=== PATIENT | male | born 1945 | race Asian ===

== ENCOUNTER 2019-10-18 15:07 | Emergency (ER) | payer OTHER ==
--- OUTSIDE RECORDS SUMMARY | 2019-10-18 15:13 | XMS REPORT | Continuity of Care Document ---
:1945 External Reference #:[id number] Author Name Darío Salcedo Address [address] [place] [address] Care Team Providers Name Role Phone Doc Reese MD - Cardiovascular Care Team Information Strategic Buyer [phone] [facility] - Care Team Information Strategic Buyer [phone] Gastroenterology Dorian Ohara MD - Family Care Team Information Strategic Buyer [phone] [place] [facility] [place] Care Team Information Strategic Buyer [phone] - Health Educator [facility] - Care Team Information Strategic Buyer Optical Mechanic [facility] [place] - Diagnostic Care Team Information Strategic Buyer Radiology [facility] [place] [facility] Care Team Information Strategic Buyer Kirit Hughes MD - Surgery Care Team Information Strategic Buyer [phone] - Urology Care Team Information Strategic Buyer [phone] Problems Active Problems Provider Date Allergic asthma without status asthmaticus Dorian Ohara M.D. Onset: Type 2 diabetes mellitus Isac Harrington M.D. Onset: 03/29/2008 Hyperlipidemia Isac Harrington M.D. Onset: 03/29/2008 Benign essential hypertension Isac Harrington M.D. Onset: 03/29/2008 Chest pain Dorian Ohara M.D. Onset: 01/26/2012 Plantar fascial fibromatosis Meadows A. Hernandez, M.D. Onset: 06/11/2012 Cough Dorian Ohara M.D. Onset: 08/16/2012 Malaise and fatigue Dorian Ohara M.D. Onset: 10/18/2012 Intestinal obstruction Dorian Ohara M.D. Onset: 12/18/2014 Acute maxillary sinusitis Dorian Ohara M.D. Onset: 01/01/2015 Essential hypertension Dorian Ohara M.D. Onset: 12/08/2016 Social History Type Date Description Comments Sex Unknown ETOH Use Occasional 1 glass of wine / week Tobacco Use Start: Unknown Nonsmoker Smoking Status Reviewed: 09/28/19 Nonsmoker Allergies, Adverse Reactions, Alerts Description No Known Drug Allergies Medications Active Medications SIG Qnty Indications Ordering Date Provider Benzonatate 1-2 tabs by mouth 30caps Katherine 100mg Capsules three times a day [place], 0 as needed cough Afnp-C Breo Ellipta 1 puff every day 28units Dorian Chapin 200-25mcg/Inh Ignacio Ohara 8 Aerosol Januvia Take 1 Tablet By 90tabs Dorian Chapin 100mg Tablets Mouth Every Day Ignacio Ohara 7 Onetouch Ultra Blue use to test blood 360units Cadence JinHarrison Strips sugars fasting Ignacio Almendarez 6 and 2 hours after meals Onetouch Delica Lancets use to test blood 360units Dorian Chapin Extra Fine 33G sugars fasting Ignacio Ohara 6 Misc daily and 2 hours after meals Onetouch Ultra System use to test blood 1units Dorian Chapin W/Device sugars fasting Ignacio Ohara 5 Kit daily and 2 hours after meals DX: 250.00 last appt : 01/01/15 [facility] Ultra Smart Test use to test blood 100units Dorian Chapin Strips sugars bid. every Ignacio Ohara 5 Strips morning before breakfast and before dinner dx e11.9 Metoprolol Tartrate Take 1 Tablet By 180tabs Dorian Chapin 50mg Mouth Two Times Ignacio Ohara 0 Tablets Daily Allopurinol Take 1 Tablet By 90tabs Dorian Chapin 300mg Tablets Mouth Daily Ignacio Ohara 8 Enalapril Maleate Take 1 Tablet By 90tabs Dorian Chapin 5mg Tablets Mouth Daily Ignacio Ohara 8 Simvastatin Take 1 Tablet By 90tabs Dorian Chapin 40mg Tablets Mouth Every Ignacio Ohara 8 Night AT Bedtime Metformin HCL Take 1 Tablet By 180tabs Dorian Chapin 850mg Tablets Mouth Twice A Ignacio Ohara 8 Day Hydrochlorothiazide Take 1 Tablet By 90tabs Dorian Chapin 25mg Mouth Daily Ignacio Ohara 8 Tablets Viagra Take 1 Tablet as 6tabs Dorian Chapin 100mg Tablets Alberto Ohara M.D. 8 Ecotrin 1 po qd 90tabs Dorian Chapin 325mg Tablets DR Mayda M.D. 8 Tamsulosin HCL 1 by mouth every Unknown 0.4mg Capsules day 0 Finasteride 1 by mouth every Unknown 5mg Tablets day 0 Spiriva Respimat 2 inhalations Unknown 1.25mcg/Act every day 0 Aerosol Fluticasone Propionate 1 spray per Unknown Nasal Gordon 24- Hour nostril daily 0 50mcg/Act Suspension Immunizations CPT Code Status Date Vaccine Lot # [id number] Given 07/02/2019 High-Dose, Influenza Virus Vacccine-fluzone 65 [id number] and older 11416 Given 06/14/2018 High-Dose, Influenza Virus Vacccine-fluzone 65 [id number] and older 44272 Given 06/10/2017 High-Dose, Influenza Virus Vacccine-fluzone 65 [id number] and older 34932 Given 07/28/2016 High-Dose, Influenza Virus Vacccine-fluzone 65 [id number] and older 13339 Given 09/12/2015 Zostivax [id number] 52703 Given 08/27/2015 Pneumococcal Conjugate Vacc-13 [id number] 84310 Given 06/18/2015 Influenza Vac, Quadrivalent, Slit Virus, Im [id number] 73624 Given 07/10/2014 High-Dose, Influenza Virus Vacccine-fluzone 65 [id number] and older 34891 Given 09/28/2013 Pneumococcal Conjugate Vacc-13 [id number] Given 06/25/2013 Split Influenza Medicare: Fluzone [id number] 13612 Given 06/25/2013 DO Not Use Split Influenza Virus Vaccine 44514 Given 08/09/2012 High-Dose, Influenza Virus Vacccine-fluzone 65 [id number] and older 16691 Given 07/22/2010 DO Not Use Split Influenza Virus Vaccine [id number] Vital Signs Date Vital Result Comment 09/28/2019 1:30pm BP Systolic 100 mmHg BP Diastolic 58 mmHg Heart Rate 66 /min Body Temperature 97.5 F Respiratory Rate 16 /min O2 % BldC Oximetry 96 % Ra Weight 187.00 lb 08/08/2019 9:11am BP Systolic 116 mmHg BP Diastolic 80 mmHg Heart Rate 68 /min Body Temperature 96.8 F Respiratory Rate 16 /min Weight 188.00 lb Results Test Acquired Date Facility Test Result H/L Range Note Comprehensive 08/08/2019 [facility]) Sodium 135 mEq/L 134-149 Metabolic Prof Potassium 3.6 mEq/L 3.6-5.5 Chloride 99 mEq/L 94-112 Carbon Dioxide 26 mEq/L 21-32 Glucose 305 mg/dL High 70-105 1 BUN 16 mg/dL 6-26 Creatinine 0.8 mg/dL 0.6-1.4 BUN/Creat Ratio 20.0 CALC 8.0-36.0 Calcium 9.5 mg/dL 8.6-10.2 Total Protein 7.4 g/dL 6.4-8.3 Albumin 4.8 g/dL 3.8-5.5 Globulin 2.6 g/dL 2.0-4.8 A/G Ratio 1.8 CALC 0.6-2.3 Alk. Phosphatase 53 U/L 22-95 Alt (SGPT) 54 U/L High 7-35 Ast (Sgot) 37 U/L High 5-34 Total Bilirubin 0.8 mg/dL 0.2-1.3 GFR Non- >60 ml/min/1.73m^ >=60 GFR >60 ml/min/1.73m^ >=60 Lipid Profile 08/08/2019 [facility](a) Cholesterol 123 mg/dL 120- 200 Triglycerides 159 mg/dL 30-200 HDL Cholesterol 49 mg/dL 30-70 LDL (Calculated) 42 CALC 0-129 VLDL Cholesterol 32 mg/dL 0-50 HDL Risk Factor 2.5 CALC 0.0-4.4 Laboratory test finding 08/08/2019 [facility]) PSA 2.5 ng/mL 0.0 -4.0 CBC Electronic Fma 08/08/2019 [facility](a) WBC 6.6 x10^3/UL 4.0- 10.0 RBC 5.35 x10^6/UL 3.93-6.00 HGB 16.2 g/dL 12.0-17.0 HCT 48 % 35-50 MCV 88.8 fL 80.0-95.0 MCH 30.3 pg 25.6-32.2 MCHC 34.1 g/dL 32.2-36.0 RDW-CV 13.7 % 11.6-14.4 PLT 198 x10^3/UL 163-400 MPV 10.8 fL 9.4-12.4 [place]# 4.55 x10^3/UL 1.56-6.13 Lymph# 1.40 x10^3/UL 1.18-3.74 [place]# 0.52 x10^3/UL 0.24-0.82 Eos # 0.1 x10^3/UL 0.0-0.5 Baso # 0.04 x10^3/UL 0.01-0.08 [place]% 68.7 % 34.0-70.0 Lymph % 21.2 % 20.0-52.0 [place]% 7.9 % 5.0-12.0 Eos% 1.1 % 0.7-7.0 Baso% 0.6 % 0.1-1.2 Laboratory test finding 08/08/2019 [facility](a) TSH 3.46 mIU/L 0.50-6.00 Free T4 1.09 ng/dL 0.75-1.54 Laboratory test 08/08/2019 [facility] Hemoglobin A1c 8.5 % % High 4.1-5.7 finding (607)- - (Fma) 1 RESULTS VERIFIED BY REPEAT ANALYSIS Procedures Date Code Description Status 10/27/2017 51038297 Colonoscopy Completed 09/20/2015 [id number] Colonoscopy Completed 10/13/2014 [id number] Colonoscopy Completed Medical Devices Description No Information Available Encounters Type Date Location Provider Dx Diagnosis Office Visit 08/08/2019 Main Office Dorian Ohara, E11.9 Type 2 diabetes 9:00a M.D. mellitus without complications R53.83 Other fatigue J45.909 Unspecified asthma, uncomplicated I10 Essential (primary) hypertension N40.1 Benign prostatic hyperplasia with lower urinary tract symp Assessments Date Code Description Provider 09/28/2019 J06.9 Acute upper respiratory infection, Lanenp-C unspecified 09/28/2019 R05 Cough Ryan Salcedo-C 09/28/2019 E11.9 Type 2 diabetes mellitus without Lanenp-C complications 08/08/2019 E11.9 Type 2 diabetes mellitus without Dorian Ohara M.D. complications 08/08/2019 R53.83 Other fatigue Dorian Ohara M.D. 08/08/2019 J45.909 Unspecified asthma, uncomplicated Dorian Ohara M.D. 08/08/2019 I10 Essential (primary) hypertension Dorian Ohara M.D. 08/08/2019 N40.1 Benign prostatic hyperplasia with lower Dorian Ohara M.D. urinary tract symptoms 07/02/2019 Z23 Encounter for immunization Dorian Ohara M.D. Plan of Treatment Future Appointment(s):12/07/2019 9:00 am - Dorian Ohara M.D. at Main [facility]8909/28/2019 - Ryan Salcedo-CJ06.9 Acute upper respiratory infection, [id number] CoughFollow up:Followup:. (Follow up)E11.9 Type 2 diabetes mellitus without complicationsAllNew Medication:Benzonatate 100 mg - 1- 2 tabs by mouth three times a day as needed coughComments:Medication Management Patient Understands medications he's taking? Yes No Are there Barriersto Adherence? Yes No Has the patient been asked about herbal supplements and therapies, and OTC meds? Yes No Care Plan1. Patient has been queried about patient's goals/preferences and functional/ lifestyle goals at relevant visits. If relevant, describe: na2. Treatment goals asexplained to the patient: above resolution of sximprovement in dm control 3. Are there barriers to meeting treatment goals? Yes No If Yes, please describe:4. Self-Management goals as described to the patient: Yes No i do not see any evidenc of a secondary bacterial infection your coughought to improve with time and supportive rx try tessalon call if no better through week or if sx worsen refer to power shovel engineer for dm management Functional Status Description No Information Available Mental Status Description No Information Available Referrals Description No Information Available
[2019-10-18 15:27] VITALS: BP 133/79
--- NOTE | 2019-10-18 15:28 | UC ---
Cardiac HPI - HPI Summary HPI Summary: 74 yo male presents, accompanied by his , with chest pain. He tells me that over the last 3-4 days he has been having intermittent episodes of central chest pain. Pain will occur randomly and is not associated with any specific activity. Chest pain lasts <10minutes and resolved spontaneously. No associated SOB, n/v, headache, or dizziness. He tells me that he has a history of asthma and has a cough at baseline - this is not worse lately. tells me that pt has a history of a "left heart clot" about 10 years ago and was seen by Dr. Reese, but is no longer on medication for this. Denies PRADHAN, abdominal pain, n/v , back pain, SOB. - History of Current Complaint Chief Complaint: UCChestPain Stated Complaint: CHEST PAIN Time Seen by Provider: 10/18/19 15:08 Hx Obtained From: Patient Onset/Duration: Sudden Onset Initial Severity: Mild Current Severity: Mild Pain Intensity: 3 - Allergy/Home Medications Allergies/Adverse Reactions: Allergies Allergy/AdvReac Type Severity Reaction Status Date / Time ENVIRONMENTAL/SEASONAL Allergy SNEEZE Uncoded 10/18/19 15:25 PMH/Surg Hx/FS Hx/Imm Hx Endocrine History: Diabetes, Dyslipidemia Cardiovascular History: Cardiac Disease, Hypertension - Surgical History Surgical History: Yes Surgery Procedure, Year, and Place: 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 09/2013-COLON RESECTION APPENDECTOMY [facility] [place]. 03/2014 GALLBLADDER. 11/2013 POWERPORT PLACEMENT. T& A S - Family History Known Family History: Positive: Cardiac Disease, Hypertension, Diabetes - Social History Lives: With Family Alcohol Use: Occasionally Alcohol Amount: 1 glass of wine 2-3 x per week Substance Use Type: None Smoking Status (MU): Never Smoked Tobacco Type: Cigarettes Amount Used/How Often: 1 PPD Length of Time of Smoking/Using Tobacco: 30 YEARS Have You Smoked in the Last Year: No When Did the Patient Quit Smoking/Using Tobacco: 1998 - Immunization History Most Recent Influenza Vaccination: 2014 Most Recent Tetanus Shot: none Most Recent Pneumonia Vaccination: 08/2013 Review of Systems All Other Systems Reviewed And Are Negative: No Constitutional: Positive: Negative Skin: Positive: Negative Eyes: Positive: Negative ENT: Positive: Negative Respiratory: Positive: Negative Cardiovascular: Positive: Chest Pain Gastrointestinal: Positive: Negative Neurovascular: Positive: Negative Neurological: Positive: Negative Psychological: Positive: Negative Physical Exam - Summary Physical Exam Summary: GENERAL: NAD. WDWN. No pain distress. SKIN: No rashes, sores, or open wounds. HEENT: Head: AT/NC Eyes: PERRLA. EOM intact. Conjunctiva clear without inflammation or discharge. Ears: Hearing grossly normal. TMs intact, no bulging, erythema, or edema. Nose: Nasal mucosa pink and moist. NTTP maxillary and frontal sinus. Throat: Posterior oropharynx without exudates, erythema, or tonsillar enlargement. Uvula midline. NECK: Supple. Nontender. No lymphadenopathy. CHEST: CTAB. No r/r/w. No accessory muscle use. Breathing comfortably and in no distress. CV: RRR. Pulses intact. Brisk cap refill. ABDOMEN: Soft. NTTP. No distention or guarding. No CVA tenderness. Bowel sounds present MSK: FROM and 5/5 strength throughout. No edema. NEURO: Alert. PSYCH: Age appropriate behavior. Triage Information Reviewed: Yes Vital Signs: Initial Vital Signs Temp 96.8 F 10/18/19 15:25 Pulse 57 10/18/19 15:25 Resp 18 10/18/19 15:25 BP 133/79 10/18/19 15:25 Pulse Ox 98 10/18/19 15:25 Laboratory Tests 10/18/19 15:20 POC Glucose (mg/dL) 148 H Vital Signs Reviewed: Yes Diagnostics - EKG EKG Comparison: Other - 56bpm sinus bradycardia. Borderline prolonged MN. 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 Read by Dr. 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 POC glucose 148. He is currently NOT having any chest pain. Given pt's cardiac hx and recent chest pain - recommend go to the ED for further evaluation. Pt and were agreeable to this and will drive him. - Clinical Impression Provider Diagnosis: Chest pain Discharge ED - Sign-Out/Discharge Documenting (check all that apply): Patient Departure All imaging exams completed and their final reports reviewed: No Studies - Discharge Plan Condition: Stable Disposition: HOME-RECOMMEND TO ED Referrals: Dorian Ohara MD [Primary Care Provider] - Additional Instructions: Please go to the ER for further evaluation of your chest pain - Billing Disposition and Condition Condition: STABLE Disposition: Home-Recommend to ED
== END 2019-10-18 15:40 | disposition home health service (06) ==
LOC: UCEAST 15:07
DX: R07.9 Chest pain, unspecified (principal); E11.9 Type 2 diabetes mellitus without complications; I10 Essential (primary) hypertension; Z91.09 Other allergy status, other than to drugs and biological substances
CPT/HCPCS: 93005; 99212; G0463

== ENCOUNTER 2019-10-18 16:09 | Emergency (ER) | payer OTHER ==
[2019-10-18 16:41] LABS: INR 1.05 (0.82-1.09)
[2019-10-18 16:47] LABS: ABS Basophils 0.1 10^3/ul (0-0.2); ABS Eosinophils 0.1 10^3/ul (0-0.6); ABS Lymphocytes 1.4 10^3/ul (1.0-4.8); ABS Monocytes 0.6 10^3/ul (0-0.8); ABS Neutrophils 4.6 10^3/ul (1.5-7.7); Eosinophil % 2.1 %; Hematocrit 45 % (42-52); Hemoglobin 16.5 g/dL (14.0-18.0); Lymphocyte % 20.4 %; Mean Corpuscular HGB Conc 36 g/dL (31-36); Mean Corpuscular Hemoglobin 33 pg (27-31); Mean Corpuscular Volume 89 fL (80-94); Mean Platelet Volume 8.5 fL (7.4-10.4); Nucleated Red Blood Cells % 0.1; Platelet Count 195 10^3/uL (150-450); Red Blood Count 5.08 10^6 /uL (4.18-5.48); Red Cell Distribution Width 14 % (10-15); White Blood Count 6.9 10^3/uL (3.5-10.8)
[2019-10-18 16:52] LABS: Albumin 4.3 g/dL (3.2-5.2); Albumin/Globulin Ratio 1.5 (1-3); BUN/Creatinine Ratio 11.7 (8-20); Calcium 9.3 mg/dL (8.6-10.3); EGFR African American 95.2 (>60); EGFR Non-African American 78.7 (>60); Globulin 2.9 g/dL (2-4); Potassium 3.6 mmol/L (3.5-5.0); Total Bilirubin 0.7 mg/dL (0.2-1.0); Total Protein 7.2 g/dL (6.4-8.9)
[2019-10-18 16:54] LABS: Troponin I 0.01 ng/mL (<0.03)
--- NOTE | 2019-10-18 18:33 | ED ---
HPI Chest Pain - HPI Summary HPI Summary: The patient is a 74 year-old male presenting to [facility] accompanied by with a chief complaint of mid sternal chest pain onset four days ago with intermittent episodes. He reports that he was about to exercise, which he does regularly, when he felt a sudden sharp pain in the chest that lasted intermittently in episodes of a few minutes but overall lasting for a few hours before subsiding completely. The next day, he felt the pain again with the same presentation as the day prior. He denies any abdominal pain, nausea, vomiting, shortness of breath, diaphoresis, or calf pain or swelling. He denies any abdominal pain, nausea, vomiting, shortness of breath, diaphoresis, or calf pain or swelling. He has only experienced similar symptoms about 10 years ago. 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 No history of DE. Past medical history includes diabetes, hypertension, cardiomegaly, coronary artery disease, hypercholesterolemia, asthma. Former smoker, rare EtOH, no substance use. - History of Current Complaint Chief Complaint: EDChestPainROMI Time Seen by Provider: 10/18/19 18:20 Hx Obtained From: Patient Onset/Duration: Started Days Ago Timing: Intermittent, Lasting Minutes Initial Severity: Moderate Current Severity: None Pain Intensity: 0 Pain Scale Used: 0-10 Numeric Chest Pain Location: Mid Sternal Chest Pain Radiates: No Character: Sharp/Stabbing Aggravating Factor(s): Exertion Alleviating Factor(s): Spontaneous Resolution Associated Signs and Symptoms: Positive: Chest Pain. Negative: Shortness of Breath, Diaphoresis, Nausea, Cough, Abdominal Pain, Calf Pain/Swelling, Vomiting - Allergy/Home Medications Allergies/Adverse Reactions: Allergies Allergy/AdvReac Type Severity Reaction Status Date / Time ENVIRONMENTAL/SEASONAL Allergy SNEEZE Uncoded 10/18/19 15:25 PMH/Surg Hx/FS Hx/Imm Hx Endocrine/Hematology History: Reports: Hx Diabetes - ON ORAL MEDICATIONS PT. STATES CONTROLLED Denies: Hx Thyroid Disease Cardiovascular History: Reports: Hx Cardiomegaly, Hx Coronary Artery Disease, Hx Hypercholesterolemia, Hx Hypertension - ON MEDICATION, Other Cardiovascular Problems/Disorders - Hx HTN Denies: Hx Congestive Heart Failure, Hx Pacemaker/ICD Respiratory History: Reports: Hx Asthma - USES INHALER AT TIMES, Hx Sleep Apnea - NO CPAP Denies: Other Respiratory Problems/Disorders GI History: Reports: Hx Ulcer - STOMACH ULCER-35 YEARS AGO, Other GI Disorders - COLON CARCINOMA w/resectioin History: Denies: Hx Renal Disease Sensory History: Reports: Hx Cataracts, Hx Contacts or Glasses - GLASSES FOR READING, 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, Other Sensory Impairments - Blocked Retinal artery Denies: Hx Hearing Aid Opthamlomology History: Reports: Hx Cataracts, Hx Contacts or Glasses - GLASSES FOR READING, 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 [place]. 09/2013-COLON RESECTION APPENDECTOMY [facility]. 03/2014 GALLBLADDER. 11/2013 POWERPORT PLACEMENT. T& A 1949' Hx Anesthesia Reactions: No Infectious Disease History: No Infectious Disease History: Denies: Traveled Outside the [place] in Last 30 Days - Family History Known Family History: Positive: Hypertension - Social History Alcohol Use: Rare Alcohol Amount: 1 glass of wine 2-3 x per week Hx Substance Use: No Substance Use Type: Reports: None Hx Tobacco Use: Yes Smoking Status (MU): Former Smoker Type: Cigarettes Amount Used/How Often: 1 PPD Length of Time of Smoking/Using Tobacco: 30 YEARS Have You Smoked in the Last Year: No Review of Systems Negative: Skin Diaphoresis Positive: Chest Pain Negative: Shortness Of Breath Negative: Abdominal Pain, Vomiting, Nausea Negative: Myalgia - calf, Edema All Other Systems Reviewed And Are Negative: Yes Physical Exam - Summary Physical Exam Summary: Constitutional: Well-developed, Well-nourished, Alert. (-) Distressed Skin: Warm, Dry HENT: Normocephalic; Atraumatic Eyes: Conjunctiva normal Neck: Musculoskeletal ROM normal neck. (-) JVD, (-) Stridor, (-) Tracheal deviation Cardio: Rhythm regular, rate normal, Heart sounds normal; Intact distal pulses; The pedal pulses are 2+ and symmetric. Radial pulses are 2+ and symmetric. (-) Murmur Pulmonary/Chest wall: Effort normal. (-) Respiratory distress, (-) Wheezes, (-) Rales Abd: Soft, (-) tenderness, (-) Distension, (-) Guarding, (-) Rebound Musculoskeletal: (-) Edema Lymph: (-) Cervical adenopathy Neuro: Alert, Oriented x3 Psych: Mood and affect Normal Triage Information Reviewed: Yes Vital Signs On Initial Exam: Initial Vitals Temp Pulse Resp BP Pulse Ox 97.8 F 56 18 133/66 97 10/18/19 16:18 10/18/19 16:18 10/18/19 16:18 10/18/19 16:18 10/18/19 16:18 Vital Signs Reviewed: Yes Procedures - Sedation Patient Received Moderate/Deep Sedation with Procedure: No Diagnostics - Vital Signs Vital Signs Temp Pulse Resp BP Pulse Ox 10/18/19 16:18 97.8 F 56 18 133/66 97 - Laboratory Lab Results: Lab Results 10/18/19 10/18/19 10/18/19 Range/Units 16:22 16:22 16:22 WBC 6.9 (3.5-10.8) 10^3/uL RBC 5.08 (4.18-5.48) 10^6 /uL Hgb 16.5 (14.0-18.0) g/dL Hct 45 (42-52) % MCV 89 (80-94) fL MCH 33 H (27-31) pg MCHC 36 (31-36) g/dL RDW 14 (10-15) % Plt Count 195 (150-450) 10^3/uL MPV 8.5 (7.4-10.4) fL Neut % (Auto) 66.9 % Lymph % (Auto) 20.4 % Harlan % (Auto) 9.4 % Eos % (Auto) 2.1 % Baso % (Auto) 1.2 % Absolute Neuts (auto) 4.6 (1.5-7.7) 10^3/ul Absolute Lymphs (auto) 1.4 (1.0-4.8) 10^3/ul Absolute Monos (auto) 0.6 (0-0.8) 10^3/ul Absolute Eos (auto) 0.1 (0-0.6) 10^3/ul Absolute Basos (auto) 0.1 (0-0.2) 10^3/ul Absolute Nucleated RBC 0.0 10^3/ul Nucleated RBC % 0.1 INR (Anticoag Therapy) 1.05 (0.82-1.09) Sodium 138 (135-145) mmol/L Potassium 3.6 (3.5-5.0) mmol/L Chloride 99 L (101-111) mmol/L Carbon Dioxide 32 (22-32) mmol/L Anion Gap 7 (2-11) mmol/L BUN 11 (6-24) mg/dL Creatinine 0.94 (0.67-1.17) mg/dL Est GFR ( Amer) 95.2 (>60) Est GFR (Non-Af Amer) 78.7 (>60) BUN/Creatinine Ratio 11.7 (8-20) Glucose 146 H (70-100) mg/dL Calcium 9.3 (8.6-10.3) mg/dL Total Bilirubin 0.70 (0.2-1.0) mg/dL AST 43 H (13-39) U/L ALT 53 H (7-52) U/L Alkaline Phosphatase 42 (34-104) U/L Troponin I 0.01 (<0.03) ng/mL Total Protein 7.2 (6.4-8.9) g/dL Albumin 4.3 (3.2-5.2) g/dL Globulin 2.9 (2-4) g/dL Albumin/Globulin Ratio 1.5 (1-3) Result Diagrams: 10/18/19 16:22 10/18/19 16:22 Lab Statement: Any lab studies that have been ordered have been reviewed, and results considered in the medical decision making process. - Radiology CXR Radiology Interpretation Completed By: ED Physician Summary of Radiographic Findings: No acute disease. ED physician has reviewed and interpreted this report. Pending official read. - EKG 1610 Summary of EKG Findings: EKG at 1610 reveals sinus bradycardia at 59 BPM, no ischemic changes. Dr. Borges has reviewed and interpreted this EKG. Chest Pain Course/Dx - Course Course Of Treatment: Patient is a 74 year-old male presenting with mid sternal chest pain onset four days ago with two episodes lasting intermittent for a few minutes but over the course of a few hours, which he first noticed when he was about to exercise. 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 Former smoker. Physical exam is insignificant for any acute abnormality. Blood work obtained to reveal slightly elevated glucose of 146, AST of 43, and ALT of 53, but is otherwise normal. First troponin of 0.01. An EKG at 1610 reveals sinus bradycardia at 59 BPM, no ischemic changes. CXR is negative. The patient is a sign-out from Dr. Rafa Borges DO, to Dr. Bill Newton MD, at change of shift at 1900 on 10/18/19, pending second troponin and disposition. - Diagnoses Provider Diagnoses: Chest pain Discharge ED - Sign-Out/Discharge Documenting (check all that apply): Sign-Out Patient Signing out patient TO: Bill Aman - Patient is a 74 year-old male presenting with mid sternal chest pain onset four days ago with two episodes lasting intermittent for a few minutes but over the course of a few hours, which he first noticed when he was about to exercise. 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 Former smoker. Physical exam is insignificant for any acute abnormality. Blood work obtained to reveal slightly elevated glucose of 146, AST of 43, and ALT of 53, but is otherwise normal. First troponin of 0.01. An EKG at 1610 reveals sinus bradycardia at 59 BPM, no ischemic changes. CXR is negative. The patient is a sign-out from Dr. Rafa Borges DO, to Dr. Bill Newton MD, at change of shift at 1900 on 10/18/19, pending second troponin and disposition. - Discharge Plan Condition: Good Disposition: HOME Patient Education Materials: Chest Pain (DC) Referrals: Dorian Ohara MD [Primary Care Provider] - 3 Days Additional Instructions: Follow up with your primary care provider in 2-3 days. Return to the emergency department for any new or worsening symptoms. - Billing Disposition and Condition Condition: GOOD Disposition: Home - Attestation Statements Document Initiated by Scribe: Yes Documenting Scribe: Amy Pride Provider For Whom Scribe is Documenting (Include Credential): Dr. Rafa Borges DO Scribe Attestation: Amy Carcamo scribed for Dr. Rafa Borges DO on 10/19/19 at 1619. Scribe Documentation Reviewed: Yes Provider Attestation: The documentation as recorded by the Amy nicole accurately reflects the service I personally performed and the decisions made by me, Dr. Rafa Borges, Status of Scrroderick Document: Viewed
--- NOTE | 2019-10-18 20:14 | ED ---
Progress - Progress Note Progress Note: Patient signed out from Dr. Rafa Borges DO, at shift change 1900 2019 pending second troponin and disposition. Course/Dx - Course Course Of Treatment: Second troponin 0.00. Patient will be discharged home with follow up from his primary care provider in 2-3 days. Patient was instructed to return to Emergency Department for new or worsening symptoms. Patient understands and is agreeable to this plan. - Diagnoses Provider Diagnoses: Chest pain Discharge ED - Sign-Out/Discharge Documenting (check all that apply): Patient Departure, Receiving Sign-Out Receiving patient FROM: Vargas Borges - Discharge Plan Condition: Good Disposition: HOME Patient Education Materials: Chest Pain (DC) Referrals: Dorian Ohara MD [Primary Care Provider] - 3 Days Additional Instructions: Follow up with your primary care provider in 2-3 days. Return to the emergency department for any new or worsening symptoms. - Billing Disposition and Condition Condition: GOOD Disposition: Home - Attestation Statements Document Initiated by Eugene: Yes Documenting Scribe: Evelyn Oleary Provider For Whom Eugene is Documenting (Include Credential): Bill Newton MD Scribe Attestation: IEvelyn, scribed for Bill Newton MD on 10/19/19 at 0535. Scribe Documentation Reviewed: Yes Provider Attestation: The documentation as recorded by the Evelyn nicole accurately reflects the service I personally performed and the decisions made by me, Bill Newton MD Status of Scribe Document: Viewed
[2019-10-18 21:55] VITALS: BP 137/82
== END 2019-10-18 21:54 | disposition home or self-care (01) ==
LOC: ED 16:09
DX: R07.89 Other chest pain (principal); R00.1 Bradycardia, unspecified; E11.9 Type 2 diabetes mellitus without complications; Z79.84 Long term (current) use of oral hypoglycemic drugs; I10 Essential (primary) hypertension; J45.909 Unspecified asthma, uncomplicated; Z79.82 Long term (current) use of aspirin; Z87.891 Personal history of nicotine dependence
CPT/HCPCS: 36415; 71045; 80053; 83880; 84484; 85025; 85610; 93005; 99283